=== PATIENT | female | born 1940 | race Caucasian/White ===

== ENCOUNTER → 2017-10-13 | Outpatient (CLI) | payer MEDICARE, OTHER ==
[~2017-10-13] MED LIST: ATEN1TAB47 PO; CALC-18 PO; LEV125 PO; vitamins
--- NOTE | 2017-10-13 14:48 | RADIOLOGY IMAGING REPORT ---
FACILITY: [facility] PATIENT NAME: PARADISE PEREIRA : [id number] MR: [id number] V: [id number] EXAM DATE: [id number] ORDERING PHYSICIAN: SHADI JENNINGS TECHNOLOGIST: Emilia Wang PROCEDURE:BILATERAL DIGITAL SCREENING MAMMOGRAM WITH CAD ASSISTED INTERPRETATION & 3D TOMOSYNTHESIS COMPARISON:Prior mammograms 07/14/16, 06/05/15, 01/23/14, 01/21/13, 02/04/12, 01/21/12. INDICATIONS:SCREENING FINDINGS: Small amount of fibroglandular tissue is seen throughout the breasts. The parenchymal pattern has remained stable allowing for difference in mammographic technique & patient positioning. There is no evidence of malignant appearing mass, malignant appearing calcifications or other secondary sign of malignancy in either breast. DIAGNOSTIC CATEGORY 1--NEGATIVE. RECOMMENDATIONS: ROUTINE MAMMOGRAM AND CLINICAL EVALUATION. IMPRESSION: BIRADS 1: Negative. No significant abnormality is seen. Dictated by: Belle Mcwilliams M.D. on 10/13/2017 at 11:22 Transcribed by: REINA on 10/13/2017 at 11:38 Approved by: Belle Mcwilliams M.D. on 10/13/2017 at 14:46 [facility]
== END ==
LOC: MAMO 01:29
PROVIDERS: ATTEND Physician Assistant
DX: Z12.31 Encounter for screening mammogram for malignant neoplasm of breast (principal)
CPT/HCPCS: 77063; 77067

== ENCOUNTER → 2017-10-28 | Outpatient (CLI) | payer MEDICARE, OTHER ==
--- NOTE | 2017-10-28 10:46 | RADIOLOGY IMAGING REPORT ---
[place] [facility] [place]IENT NAME: Linda Kelley : 1940 MR: [id number] V: [id number] EXAM DATE: ORDERING PHYSICIAN: SHADI JENNINGS TECHNOLOGIST: Location: [facility] [place] Patient: Linda Kelley : 1940 Visit/Account:[id number] Date of Sevice: 10/28/2017 DEXA Scan 10/28/2017 9:30 AM HISTORY: Screening. Postmenopausal. Comparison: DEXA scan from 10/17/2015. LUMBAR SPINE: The bone mineral density (BMD) measured from L1-L4 correlates with a Z-score of 2.4 and a T-score of 0.5 which is Normal as defined by the World Health Organization. The corresponding risk of fracture in the lumbar spine is Not increased compared with a young adult reference population. This value pantoja s increased by 0.7 % since the prior study. More than 5% change is considered significant. HIP: Bone mineral density (BMD) measured in the Left total hip region correlates with a Z-score -0.1 and a T-score of -2.1 which is severely osteopenic as defined by the World Health Organization. The corre sponding risk of fracture in the hip is increased 4-6 times compared with a young adult reference pop ulation. This value has decreased by 1.7 % since the prior study. More than 5% change is considered significant. Bone mineral density (BMD) measured in the Femoral Neck region measures 0.894 g/cm2. T-score is -1. 0. IMPRESSION: 1. Lumbar spine: Normal. There has been No significant change in the bone mineral density since the previous exam. 2. Left Total Hip: Severe osteopenia. There has been No significant change in the bone mineral dens ity since the previous exam. 3. Femoral Neck: Bone Mineral Density is 0.894 g/cm2. Mild osteopenia. The next DEXA scan of this patient should include the following sites: L1-L4 and the left hip. FRAX? WHO Fracture Risk Assessment Tool link: <http://www.shef.ac.uk/FRAX/tool.jsp?locationValue=9> PLEASE NOTE: 1) The World Health Organization defines low BMD as follows: T-score Normal > -1 Osteopenia < -1 and > -2.5 Osteoporosis < -2.5 without fractures Established osteoporosis < -2.5 with fractures 2) In general, you may wish to consider: Diagnosis Treatment Follow-up DEXA Normal BMD Prevention 2-3 years Osteopenia Prevention/therapy 1-2 years Osteoporosis Therapy Yearly 3) Fracture risk estimated from the T-score is more accurate for vertebral fractures (often spontane ous) than for hip fractures. Report Dictated By: Jonathan Carr MD at 10/28/2017 10:40 AM Report E-Signed By: Jonathan Carr MD at 10/28/2017 10:43 AM WSN:[id number]
== END ==
LOC: RAD 01:06
PROVIDERS: ATTEND Physician Assistant
DX: M85.88 Other specified disorders of bone density and structure, other site (principal)
CPT/HCPCS: 77080

== ENCOUNTER → 2017-10-28 | Outpatient (REF) | payer MEDICARE, OTHER | LOC: ZZSENDIN 17:09 | PROVIDERS: ATTEND Physician Assistant | DX: E78.00 Pure hypercholesterolemia, unspecified (principal) | CPT/HCPCS: 82465; 83718; 84478 ==

== ENCOUNTER → 2017-11-16 | Outpatient (CLI) | payer MEDICARE, OTHER ==
--- NOTE | 2017-11-18 15:22 | RT HOLTER TEST ---
FACILITY: [facility] - [place] PATIENT NAME: PARADISE PEREIRA : [id number] MR: [id number] V: [id number] EXAM DATE: ORDERING PHYSICIAN: SHADI JENNINGS TECHNOLOGIST: JOSÉ Hook-up date: 2017-11-16 13:05:00 Duration: 47:59:00 Test Indications: KEARA Medications: [id number] QRS complexes 56 Ventricular ectopics which represent <1 % of total QRS comp. 25 Supraventricular ectopics which represent <1 % of total QRS comp. * Paced QRS complexes which represent % of total QRS comp. VENTRICULAR ECTOPY 52 Isolated 0 Bigeminal Cycles 2 Couplets 0 Runs 0 Beats in Runs * Beats LONGEST at * BPM at :: -- * Beats FASTEST at * BPM at :: -- SUPRAVENTRICULAR ECTOPY 15 Isolated 1 Couplets 2 Runs 8 Beats in Runs 5 Beats LONGEST at 147 BPM at 21:14:53 2017-11-17 5 Beats FASTEST at 147 BPM at 21:14:53 2017-11-17 HEART RATES 54 MIN at 03:00:33 2017-11-18 76 AVG 108 MAX at 21:14:52 2017-11-17 LONGEST RR 1.128 secs at 03:48:59 2017-11-17 S-T LEVELS Channel 1 -12.800 mm MIN at 13:05:00 2017-11-16 -12.800 mm MAX at 13:05:00 2017-11-16 Channel 2 -12.800 mm MIN at 13:05:00 2017-11-16 -12.800 mm MAX at 13:05:00 2017-11-16 Channel 3 -12.800 mm MIN at 13:05:00 2017-11-16 -12.800 mm MAX at 13:05:00 2017-11-16 Rare ventricular ectopy with two couplets. No runs were recorded. Rare supraventricular ectopy with one couplet and one short run of five (5) beats. No pauses were recorded. Confirmed by ALIDA DAVIS ([id number]) on 11/18/2017 3:21:46 PM Referred By: Overread By: ALIDA DAVIS
== END ==
LOC: RESP 00:56
PROVIDERS: ATTEND Physician Assistant
DX: R00.1 Bradycardia, unspecified (principal)
CPT/HCPCS: 93225; 93226